=== PATIENT | male | born 1990 | race Caucasian/White ===

== ENCOUNTER 2018-05-12 21:03 | Emergency (ER) | payer OTHER ==
[2018-05-12 21:30] VITALS: RESP 18
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
[2018-05-13 01:05] VITALS: BP 140/90; PULSE 89; TEMP 98; O2SAT 98
--- NOTE | 2018-05-13 09:52 | RAD ---
Date of service: 05/12/2018 PROCEDURE: Left Knee Radiographs. HISTORY: Pain. COMPARISON: None. FINDINGS: BONES: Normal. No fracture. JOINTS: Normal. No osteoarthritis. JOINT EFFUSION: None. OTHER FINDINGS: None. IMPRESSION: Normal radiographs of the left knee.
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
== END 2018-05-13 01:05 | disposition home or self-care (01) ==
LOC: ED 21:03
DX: S09.90XA Unspecified injury of head, initial encounter (principal); T14.8XXA Other injury of unspecified body region, initial encounter; V03.90XA Pedestrian on foot injured in collision with car, pick-up truck or van, unspecified whether traffic or nontraffic accident, initial encounter; Y92.410 Unspecified street and highway as the place of occurrence of the external cause